=== PATIENT | male | born 1990 | race Caucasian/White ===

== ENCOUNTER 2016-08-21 17:26 | Emergency (ER) | payer OTHER ==
[~2016-08-21] VITALS: Ht 182.9 cm; Wt 128.9 kg
[2016-08-21 17:32] VITALS: BP 131/85
== END 2016-08-21 19:20 | disposition home or self-care (01) ==
LOC: ED 17:26
DX: J02.9 Acute pharyngitis, unspecified (principal)

== ENCOUNTER 2017-09-27 19:31 | Emergency (ER) | payer OTHER ==
[~2017-09-27] VITALS: Ht 185.4 cm; Wt 127.0 kg
[2017-09-27 19:35] VITALS: Ht 185.4 cm; Wt 127.0 kg
[2017-09-27 20:25] VITALS: BP 119/71
== END 2017-09-27 20:25 | disposition home or self-care (01) ==
LOC: ED 19:31
DX: S39.012A Strain of muscle, fascia and tendon of lower back, initial encounter (principal); V43.62XA Car passenger injured in collision with other type car in traffic accident, initial encounter; Y93.I9 Activity, other involving external motion; Y92.488 Other paved roadways as the place of occurrence of the external cause; Y99.8 Other external cause status

== ENCOUNTER 2018-04-22 18:42 | Emergency (ER) | payer OTHER ==
[~2018-04-22] VITALS: Ht 185.4 cm; Wt 117.5 kg
[2018-04-22 18:50] VITALS: Ht 185.4 cm; Wt 117.5 kg
[2018-04-22 21:42] VITALS: BP 157/96
== END 2018-04-22 21:43 | disposition home or self-care (01) ==
LOC: ED 18:42
DX: M75.92 Shoulder lesion, unspecified, left shoulder (principal)

== ENCOUNTER 2018-05-26 22:52 | Emergency (ER) | payer OTHER ==
[~2018-05-26] VITALS: Ht 185.4 cm; Wt 116.8 kg
[2018-05-26 23:10] VITALS: Ht 185.4 cm; Wt 116.8 kg
[2018-05-27 00:16] LABS: BASOPHIL % 0.7 % (0-2); PLATELET COUNT 243 x10^3mcL (130-400); RED CELL DISTRIBUTION WIDTH 12.4 % (11.5-14.5)
[2018-05-27 01:00] LABS: CALCIUM 8.9 mg/dL (8.5-10.1); CARBON DIOXIDE 28.6 mmol/L (21-32); CHLORIDE SERUM 103 mmol/L (98-107); GFR1 > 60 mL/min; GLUCOSE SERUM 99 mg/dL (74-106); POTASSIUM SERUM 3.8 mmol/L (3.5-5.1); SODIUM SERUM 141 mmol/L (136-145)
[2018-05-27 01:05] LABS: ALBUMIN 3.8 g/dL (3.4-5.0); ALKALINE PHOSPHATASE 77 U/L (46-116); ALT/SGPT 24 U/L (16-63); AST/SGOT 15 U/L (15-37); BILIRUBIN TOTAL 0.42 mg/dL (0.20-1.00); TOTAL PROTEIN, SERUM 7.3 g/dL (6.4-8.2)
[2018-05-27 01:22] VITALS: BP 116/54
== END 2018-05-27 01:22 | disposition home or self-care (01) ==
LOC: ED 22:52
PROVIDERS: Emergency Medicine
DX: R07.89 Other chest pain (principal); R05 Cough
CPT/HCPCS: 36415; Q0092